=== PATIENT | female | born 1970 | race Caucasian/White ===

== ENCOUNTER 2024-12-22 08:37 | Outpatient (AMB) | payer OTHER, SELFPAY ==
--- NOTE | 2024-12-22 08:41 | A.OFFPC_ITS ---
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: No Is last menstrual period known: No Post menopausal: No Patient : No Allergies No Known Allergies Allergy (Verified 12/22/24 09:10) Medication List - Last Reconciled 12/22/24 by Eli Kaye CNP No Known Home Meds Tobacco use date assessed: 12/22/24 Dental Screening Dental Screen Date: 12/22/24 Did you have a dental visit in the last 12 months?: Yes Did you have a dental problem in the last 6 months where you did not have access to dental care?: No Was dental information given to patient?: Patient has dentist HPI HPI Comments History of Present Illness Details 54-year-old female presents to establish care. Prior PCP? - Dr. Lee, [facility] Last office visit/CPE/labs - 2019 Acute issue(s) - Myopia, hypeopia, astigmatism: wears c ontacts and prescription glasses Past Medical History - Myopia, hypeopia, astigmatism, Herpes simplex 1 Surgical History - Tonsillectomy - Laparoscopy left ovarian cyst Family History - Dad: Tongue cancer - Mom: HTN - MGF: HTN, HLD Social History - Nonsmoker. Does not vape. Does not drmarly nk. Denies recreational drug use - Has been making healthy dietary choice s. Walks routinely. Generally sleep well Health maintenance - Last eye exam was in 04/2024 at [facility]. Record not available. She will sign a release for her PCP to obtain her eye record - Last dental visit was in 11/2024 - Last tetanus vaccine was more than 10 years ago; declined Tdap vaccine today - Has not been vaccinated for the flu ; declines vaccination - She has not been vaccinated for shingl es or pneumonia; declines both vaccines. Encouraged to get vaccinated for both vaccines. She may get the vaccines from the local pharmacy - Last pap smear test was with [facility] in 11/2024 - Last mammogram was at [facility] i n 12/20/2024: Results pending - She has never had a colonoscopy. She w ill consider colonoscopy vs Cologuard and inform his PCP [facility] Surgical History (Updated 12/22/24 @ 08:52 by Radha Reed MA) History of laparoscopy History of tonsillectomy Family History (Updated 12/22/24 @ 09:02 by Radha Reed MA) Mother High blood pressure Maternal Grandfather High blood pressure High cholesterol Father Tongue cancer Social History Housing: House Patient Tobacco Use Status: Never used Tobacco e-Cigarette/Vaping Use: Never Used Second Hand Smoke Exposure: No service: No Current occupational status: unemployed Current occupational exposures/hazards: No Cognitive needs: No Hearing needs: No Vision needs: Yes Questionnaire PHQ-9 Over the last 2 weeks, how often have you been bothered by any of the following problems? 1. Little interest or pleasure in doing things: not at all 2. Feeling down, depressed, or hopeless: not at all 3. Trouble falling or staying asleep, or sleeping too much: not at all 4. Feeling tired or having little energy: several days 5. Poor appetite or overeating: not at all 6. Feeling bad about yourself - or that you are a failure or have let yourself or your family down: not at all 7. Trouble concentrating on things, such as reading the newspaper or watching television: not at all 8. Moving or speaking so slowly that other people could have noticed. Or the opposite - being so fidgety or restless that you have been moving around a lot more than usual: not at all 9. Thoughts that you would be better off or of hurting yourself in some way: not at all Total score: 1 Depression Screening Interpretation: Negative Depression Screening Done: Yes 28199 - PHQ-9 Billing: Yes Source: Developed by Drs. Frank Kaur, Kavita Cavazos, Harpreet Perales and colleagues, with an educational anahi from [employer]. Thrive Questionnaire Date Thrive assessed: 12/22/24 I am a: Patient What is your living situation today?: I have a steady place to live Within the past 12 months, did the food you bought not last and you didn't have the money to get more?: Never true Within the past 12 months, did you worry whether your food would run out before you got money to buy more?: Never true Do you have trouble paying for medicines?: No Do you have trouble getting transportation to medical appointments?: No Do you have trouble paying your heating and electricity bill?: No Do you have trouble taking care of your child, family member or friend?: No Do you have trouble with day-to-day activities such as bathing, preparing meals, shopping, managing finances, etc.?: No Are you currently unemployed and looking for a job?: No Are you interested in more education?: I choose not to answer this question Please select the resources that you would like help with: None Currently or been in a relationship where the following occur: No concerns reported THRIVE Score: 0 AUDIT C Alcohol Use Questionnaire (AUDIT-C) 1. How often do you have a drink containing alcohol?: Never Total Score: 0 CHERRY-7 AMB Questionnaire CHERRY-7 Date CHERRY - 7 assessed: 12/22/24 Feeling nervous, anxious, or on edge: 0 = Not at all Not being able to stop or control worryin = Not at all Worrying too much about different things: 0 = Not at all Trouble relaxin = Not at all Being so restless that it is hard to sit still: 0 = Not at all Becoming easily annoyed or irritable: 0 = Not at all Feeling afraid as if something awful might happen: 0 = Not at all Total CHERRY-7 score (0-4 normal; 5-9 mild; 10-14 moderate; 15-21 severe): 0 Source: Developed by Drs. Frank Kaur, Kavita Cavazos, Harpreet Perales and colleagues, with an educational anahi from [employer]. CHERRY-7 Assessment Billing CHERRY-7 Assessment Tool: CHERRY-7 Assessment 84806 Review of Systems Const Details: Denies chills, Denies fatigue, Denies fever(s), Denies headache(s) and Denies weakness HEENT Denies change in vision, Denies dizziness, Denies headache(s), Denies hearing loss, Denies nasal congestion, Denies sinus pain, Denies sinus pressure and Denies sore throat Card Denies chest pain, Denies lightheadedness, Denies dyspnea and Denies other (palpitations) Resp Denies cough, Denies dyspnea and Denies wheezing GI Denies abdominal pain, Denies melena, Denies hematochezia, Denies change in bowel habits, Denies dyspepsia and Denies nausea Denies hematuria and Denies dysuria Musc Denies abnormal gait, Denies myalgias, Denies arthralgias, Denies numbness and Denies tingling Skin/Breast Denies rash, Denies unusual bruising and Denies wounds Neuro Denies abnormal gait, Denies dizziness, Denies headache(s), Denies memory loss, Denies numbness, Denies Sensory deficit (Neuro), Denies tingling and Denies weakness Psych Denies anxiety, Denies depression and Denies memory loss Endo Denies cold intolerance, Denies fatigue, Denies heat intolerance, Denies polydipsia and Denies polyuria Kevin/Lymph Denies easy bleeding and Denies easy bruising Aller/Immun Denies wheezing Physical exam (Primary Care) Vital Signs: Last Vital Signs Temp 97.6 F 12/22/24 09:02 Pulse 70 12/22/24 09:02 Resp 16 12/22/24 09:02 BP 119/69 12/22/24 09:02 Pulse Ox 100 12/22/24 09:02 Oxygen Delivery Method Room Air 12/22/24 09:02 BMI result Body Mass Index 22.6 Tobacco/Smoking Status: Tobacco use Status Tobacco use date assessed 12/22/24 12/22/24 08:53 Patient Tobacco Use Status Never used Tobacco 12/22/24 08:53 e-Cigarette/Vaping Use Never Used 12/22/24 09:05 PHQ-9: PHQ-9 Score PHQ-9: Total score 1 12/22/24 09:05 Depression Screening Interpretation: Negative Thrive Assessment: Date of Thrive Assessment Date Thrive assessed 12/22/24 12/22/24 08:43 Currently or been in a relationship where the following occur: No concerns reported Const Other: General: no acute distress, well developed, alert and awake Nutritional Appearance: well nourished Orientation/consciousness: patient oriented x3 HENMT Head: Yes normocephalic and Yes atraumatic Ears: hearing grossly normal bilaterally and TM's normal bilaterally General nose exam: Normal external nose present and Normal nares present Mouth: Normal oral and palatal mucosa present and moist mucous membranes Teeth and gingiva: dentition normal Throat: Yes oropharynx normal Eyes Pupils: Equal, round and reactive pupils present and Pupil accommodation reflex normal EOM: EOMs intact bilaterally Neck Neck: Yes normal visual inspection, Yes no lymphadenopathy and Yes trachea midline Thyroid: Thyroid normal Carotids: no bruits Lymphatic: no lymphadenopathy noted Chest Chest palpation & inspection: normal inspection of the chest Resp Effort & Inspection: normal respiratory effort Auscultation: clear to auscultation bilaterally Cardio Rate: regular rate Rhythm: regular rhythm Heart sounds: S1 normal heart sound present, S2 normal heart sound present, no gallops, no murmurs and no rubs Bruits: no abdominal aortic bruits and no carotid bruits GI Palpation (GI): No Abdominal aortic bruit present, Soft to palpation, nontender, No hepatosplenomegaly present and No Rebound tenderness present Auscultation: normal bowel sounds General: Yes no CVA tenderness Back/Spine/Pelvis Back: no CVA tenderness Cervical Spine: cervical ROM normal and No Cervical spine tenderness Thoracic/Lumbar Spine: thoraco-lumbar ROM normal, No pain with thoraco-lumbar ROM, No thoracic spinal tenderness and No lumbar spinal tenderness Skin General: warm and dry. Normal skin color. Normal skin turgor Lesions: no lesions Rashes: no rashes Trauma: no lacerations or abrasions Wounds: no wounds Nails: normal Neuro General: patient oriented x3, gait normal and CN's II-XI intact bilaterally Cranial nerves: Yes Equal, round and reactive pupils present Cognition (Neuro): normal cognition Gait exam (Neuro): Normal gait present Motor exam (neuro): 5/5 motor strength present throughout Sensory Exam: No Sensory deficit (Neuro) Deep tendon reflexes (DTR's): Right patellar reflex intensity grade: 2+ and Left patellar reflex intensity grade: 2+ Extrem General: Yes normal to inspection, No edema and No calf tenderness Psych Appearance: grossly normal Affect: normal affect Attitude: cooperative Thought process: Normal thought process present Coding Level of Care Code New Pt Prev Care 40-64y(01481) Diagnoses Normal physical examination, routine Z00.00 Laboratory tests ordered as part of a complete physical exam (CPE) Z00.00 Additional Codes CHERRY-7 Assessment Billing - CHERRY-7 Assessment Tool: CHERRY-7 Assessment 01955 ([id number]) PHQ-9 - 18620 - PHQ-9 Billing: Yes ([id number]) Assessment & Plan Assessment & Plan (1) Normal physical examination, routine: Code(s): Z00.00 - Encounter for general adult medical examination without abnormal findings Category: Medical Plan: No significant functional limitations noted. Healthy diet and routine exercise encouraged. Advised to perform lab work before next visit. Follow-up for telehealth visit in 2-3 weeks for labs review. Return sooner with symptoms or concerns. Verbalized understanding and agreed with treatment plan. (2) Laboratory tests ordered as part of a complete physical exam (CPE): Code(s): Z00.00 - Encounter for general adult medical examination without abnormal findings Category: Medical Plan: Fasting labs ordered as part of a complete physical exam. Advised to fast for at least 10 hours before getting labs drawn. May drink water Verbalized understanding and agreed with treatment plan. Orders: Orders Lipid Panel Today Z00.00 - Encounter for general adult medical examination without abnormal findings TSH reflex Free T4 Today Z00.00 - Encounter for general adult medical examination without abnormal findings Complete Blood Count Auto Diff Today Z00.00 - Encounter for general adult medical examination without abnormal findings Comprehensive [place]. Panel Fast Today Z00.00 - Encounter for general adult medical examination without abnormal findings Microalbumin, Random (w Creat) Today Z00.00 - Encounter for general adult medical examination without abnormal findings UA CC w/rflx Micro + Cult Today Z00.00 - Encounter for general adult medical examination without abnormal findings Vitamin D 25-OH Total Today Z00.00 - Encounter for general adult medical examination without abnormal findings
[2024-12-22 09:02] VITALS: BP 119/69; PULSE 70; RESP 16; TEMP 36.4; O2SAT 100; BMI 22.6
== END 2024-12-22 09:30 | disposition home or self-care (01) ==
LOC: HO.HMCFM 08:38
PROVIDERS: PCP Nurse Practitioner Family; Visit Provider Nurse Practitioner Family
DX: Z00.00 Encounter for general adult medical examination without abnormal findings (principal)

== ENCOUNTER → 2024-12-22 08:37 | Outpatient (BNVA) | payer OTHER, SELFPAY | PROVIDERS: PCP Nurse Practitioner Family; Visit Provider Nurse Practitioner Family | DX: Z00.00 Encounter for general adult medical examination without abnormal findings (principal) | CPT/HCPCS: 96127 ==

== ENCOUNTER 2024-12-31 09:29 | Outpatient (REF) | payer OTHER, SELFPAY ==
[2024-12-31 11:17] LABS: MANUAL DIFF FLAG NO
[2024-12-31 11:36] LABS: Basophils Percent Auto 0.6 % (0-2); Eosinophils Absolute Auto 0.1 X10*3/uL (0.0-0.4); Eosinophils Percent Auto 1.1 % (0-4); Hematocrit 40.6 % (37.0-47.0); Hemoglobin 13.8 g/dl (12.0-16.0); Imm Gran Abs Auto 0.01 X10*3/uL (0.00-0.03); Imm Gran Pct Auto 0.2 % (0.0-0.4); Lymphocytes Absolute Auto 2.3 X10*3/uL (1.2-4.9); Lymphocytes Percent Auto 49.7 % (20-40); Mean Corpuscular Hemoglobin 29.8 pg (27.0-33.0); Mean Corpuscular Volume 87.7 fL (80.0-98.0); Mean Platelet Volume 9.3 fL (9.4-12.3); Monocytes Absolute Auto 0.3 X10*3/uL (0.1-1.2); Monocytes Percent Auto 7.3 % (2-11); Neutrophils Absolute Auto 1.9 x10*3/uL (2.0-8.3); Neutrophils Percent Auto 41.1 % (45-73); Platelet Count 193 X10*3/uL (160-400); Red Blood Count 4.63 X10*6/uL (4.20-5.50); Red Cell Distribution Width 12.1 % (11.0-16.0); White Blood Count 4.7 X10*3/uL (4.8-10.8)
[2024-12-31 11:55] LABS: Alanine Aminotransferase 27 U/L (0-31); Albumin Level 4.3 g/dL (3.5-5.0); Alkaline Phosphatase 62 U/L (39-117); Anion Gap 11 (12-20); Aspartate Amino Transferase 28 U/L (5-31); Bilirubin Total 0.8 mg/dL (0.0-1.0); Blood Urea Nitrogen 22 mg/dL (9-16); Calcium 9.5 mg/dL (8.4-10.2); Carbon Dioxide 31 mmol/L (22-29); Chloride 104 mmol/L (96-108); Cholesterol 171 mg/dL (<200); Estimated Glomerular Filt Rate > 60; Glucose Fasting 91 mg/dL (60-99); HDL Cholesterol 58 mg/dL (>40); LDL Cholesterol Calculated 98 mg/dL (<100); Potassium 4.3 mmol/L (3.3-5.1); Sodium 142 mmol/L (135-145); Total Protein 7.6 g/dL (6.5-8.0); Triglycerides 78 mg/dL (<150)
[2024-12-31 12:06] LABS: TSH reflex Free T4 0.76 uIU/mL (0.32-4.0); Vitamin D 25-OH Total > 154.2 ng/mL (>30)
[2024-12-31 14:19] LABS: Appearance Urine Clear; Color Urine Yellow; Glucose Urine UA Negative (Negative); Leukocyte Esterase Urine Trace (Negative); Nitrite Urine Negative (Negative); Specific Gravity - Urine 1.025 (1.005-1.025); UMIC TRIGGER UACC YES; Urine Blood Negative (Negative); Urine Ketones Negative (Negative); Urine Protein Negative (Neg-Trace)
[2024-12-31 14:22] LABS: Bacteria Urine None Seen (None Seen); Hyaline Casts Urine 0-2 /LPF (0-2); RBC Urine 0-2 /HPF (0-2); Squamous Epithelial Cell Urine 0-2 /HPF (0-2); WBC Urine 0-5 /HPF (0-5)
[2024-12-31 14:51] LABS: Creatinine Urine 156.44 mg/dL; Microalbum/Creatinine Ratio Ur 4.4 ug/mg cr (<30)
== END 2024-12-31 09:30 | disposition home or self-care (01) ==
LOC: HO.WFDLDS 09:29
PROVIDERS: Visit Provider Nurse Practitioner Family
DX: Z00.00 Encounter for general adult medical examination without abnormal findings (principal); Z13.6 Encounter for screening for cardiovascular disorders
CPT/HCPCS: 36415; 80053; 80061; 81001; 82043; 82306; 82570; 84443; 85025

== ENCOUNTER 2025-01-10 14:20 | Outpatient (AMB) | payer OTHER, SELFPAY ==
--- NOTE | 2025-01-10 14:12 | MHC.PC.OV ---
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 She offers no complaints and denies acute symptoms at this time. [facility] Surgical History (Updated 12/22/24 @ 08:52 by Radha Reed MA) History of laparoscopy History of tonsillectomy Family History (Updated 12/22/24 @ 09:02 by Radha Reed MA) Mother High blood pressure Maternal Grandfather High blood pressure High cholesterol Father Tongue cancer Social History Housing: House Patient Tobacco Use Status: Never used Tobacco e-Cigarette/Vaping Use: Never Used Second Hand Smoke Exposure: No Patient : No service: No Current occupational status: unemployed Current occupational exposures/hazards: No Cognitive needs: No Hearing needs: No Vision needs: Yes Questionnaire Thrive Questionnaire Date Thrive assessed: 12/22/24 CHERRY-7 AMB Questionnaire CHERRY-7 Date CHERRY - 7 assessed: 12/22/24 Source: Developed by Drs. Frank Kaur, Kavita Cavazos, Harpreet Perales and colleagues, with an educational anahi from [employer]. Review of Systems Const Details: Denies chills, Denies fatigue, Denies fever(s), Denies headache(s) and Denies weakness Cardiac Denies chest pain, Denies claudication, Denies leg edema, Denies lightheadedness, Denies palpitations, Denies dyspnea, Denies dyspnea on exertion, Denies orthopnea and Denies other (Loss of consciousness) Resp Denies cough, Denies excessive phlegm production, Denies dyspnea, Denies dyspnea on exertion, Denies snoring and Denies wheezing Physical exam (Primary Care) Tobacco/Smoking Status: Tobacco use Status Tobacco use date assessed 01/10/25 01/10/25 14:14 Patient Tobacco Use Status Never used Tobacco 01/10/25 14:14 e-Cigarette/Vaping Use Never Used 01/10/25 14:14 Thrive Assessment: Date of Thrive Assessment Date Thrive assessed 12/22/24 01/10/25 14:14 Const Other: Patient is alert and oriented x3. Telehealth Telehealth Telehealth Platform: Telephone Location of provider rendering services: practice address Location of patient: address on file Patient Identification confirmed using: Name, : Yes Telehealth method: voice only Patient verbally consented to treatment: Yes Patient verbally consented to billing insurance company: Yes Patient informed of any privacy concerns related to visit: Yes Coding Level of Care Code Tele Est Pt Level 3 (07863) Diagnoses Leukopenia D72.819 Time Spent (min) 10 Assessment & Plan Assessment & Plan (1) Leukopenia: Code(s): D72.819 - Decreased white blood cell count, unspecified Category: Medical Plan: Recent WBC slightly low, 4.7; equivocal Will check vitamin B12 and folate levels and make changes as needed. 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 Return with symptoms or concerns. Verbalized understanding and agreed with the plan. Orders: Orders Vitamin B12 and Folate Today D72.819 - Decreased white blood cell count, unspecified
== END 2025-01-10 15:23 | disposition home or self-care (01) ==
LOC: HO.HMCFM 14:20
PROVIDERS: PCP Nurse Practitioner Family; Visit Provider Nurse Practitioner Family
DX: D72.819 Decreased white blood cell count, unspecified (principal)

== ENCOUNTER → 2025-01-10 14:20 | Outpatient (BNVA) | payer OTHER, SELFPAY | PROVIDERS: PCP Nurse Practitioner Family; Visit Provider Nurse Practitioner Family ==

== ENCOUNTER 2025-02-14 08:51 | Outpatient (AMB) | payer OTHER, SELFPAY ==
--- NOTE | 2025-02-14 09:12 | MHC.OFFWIV ---
Intake Vital Signs 02/14/25 09:17 Height 5 ft 6 in Weight 140 lb 6 oz BMI 22.7 BP 122/70 Blood Pressure Location Lt brachial Position Sitting Respiration 13 Pulse 76 Pulse Source Pulse Oximeter Temp 97.6 F Temp Source Oral Pulse Oximetry (%) 98 Oxygen Delivery Method Room Air Intake Visit Reasons: swelling of nose Intake Note: Patient c/o painful and swelling of nose x 2 days Patient Tobacco Use Status: Never used Tobacco Allergies No Known Allergies Allergy (Verified 02/14/25 09:39) Medication List - Last Reconciled 02/14/25 by JESSICA Taylor No Known Home Meds Do you need a note to return to daycare/school/sports/work: No HPI HPI Comments History of Present Illness Details History - The patient is a 54-year-old female presenting with painful swelling of the nose. - Reports a cold one week prior, with significant nasal sneezing and congestion. - Swelling onset occurred after the subsiding of cold symptoms, prominently on Friday, with soreness following a couple of days later. - Noticeable worsening last night, characterized by throbbing, painful sensation and concerns about an infectious process. - Experience of nasal sores in the past, treated effectively with Valtrex, but not accompanied by swelling. - Ears persistently felt blocked. - Recent travel mentioned, possibly impacting symptom monitoring. - Denies fever, chills, sinus pain, ear pain, sore throat. Physical Exam General: Awake, alert. No apparent distress Eyes: Sclera and conjunctiva clear bilaterally Cerumen bilat EAC removed w/ lavage, TM intact and clear bilat Nose: Under nasal septum is a scabbed lesion, inside both nares there are red blistered areas, some with crusting, turbinates erythematous and edematous, pain w/ tissue manipuation via scope, no drainage Throat: Moist mucosa membrane, pharynx within normal limits Cardiovascular: Regular rate and rhythm Respiratory: Clear to auscultation bilaterally Discussion Notes During this visit, we discussed the patient's probable nasal flare-up due to a Herpes Simplex reactivation, given the prior history of cold sores. I recommended initiating oral Valtrex at a dosage of three times per day for three days to address any viral involvement, even though the presentation did not conclusively appear like a herpes outbreak. In addition, we considered a secondary bacterial component, prompting the prescription of Mupirocin, a topical antibiotic cream to apply intranasally twice daily until lesions resolve. The patient expressed understanding of the potential risks and benefits of the medications, such as gastrointestinal discomfort from Valtrex, which should be alleviated by concurrent food intake. Prospective follow-up possibilities were discussed with particular emphasis on consulting her primary care physician, Dr. Kimberly ANGUIANO, should symptoms persist or worsen. Bilat ear lavage today to address blocked sensations attributed to wax accumulation, anticipating relief once cleared. Assessment and Plan 1. Nasal swelling and pain The nasal discomfort and swelling appear linked to a possible Herpes Simplex reactivation and potential bacterial superinfection. Prescribed Valtrex and Mupirocin aim to address both aspects effectively, with Valtrex focusing on viral containment and Mupirocin targeting any bacterial infections. 2. Wax buildup in ears Anticipate symptomatic improvement through ear irrigation, alleviating the wax-induced blockage and improving auditory comfort. Patient Instructions - Take Valtrex orally three times a day for three days with meals to minimize stomach upset. - Apply Mupirocin cream inside the nostrils twice daily to address the nasal lesions; cease use following resolution. - Undergo ear irrigation to remove excessive ear wax today. - Contact Dr. Kaye or return if symptoms worsen or do not improve as anticipated. Consent Patient was informed and verbally consented to the use of an ambient scribe for clinic note documentation during this visit. Total time spent caring for the patient today was 30 minutes. This includes time spent before the visit reviewing the chart, time spent during the visit, and time spent after the visit on documentation, reviewing laboratory results, diagnostic imaging, medications, performing a medically necessary evaluation, counseling on diagnoses, care coordination, ordering appropriate tests, ordering appropriate medications, review of tests performed by other providers, reporting test results with the patient, communication with other healthcare providers. [facility] Surgical History (Updated 12/22/24 @ 08:52 by Radha Reed MA) History of laparoscopy History of tonsillectomy Family History (Updated 12/22/24 @ 09:02 by Radha Reed MA) Mother High blood pressure Maternal Grandfather High blood pressure High cholesterol Father Tongue cancer Social History Housing: House Patient Tobacco Use Status: Never used Tobacco e-Cigarette/Vaping Use: Never Used Second Hand Smoke Exposure: No service: No Current occupational status: unemployed Current occupational exposures/hazards: No Cognitive needs: No Hearing needs: No Vision needs: Yes Physical Exam Vital Signs: Last Vital Signs Temp 97.6 F 02/14/25 09:17 Pulse 76 02/14/25 09:17 Resp 13 02/14/25 09:17 BP 122/70 02/14/25 09:17 Pulse Ox 98 02/14/25 09:17 Oxygen Delivery Method Simple Mask 02/14/25 09:17 BMI result Body Mass Index 22.7 Office Procedures Cerumen Removal From which ear canal was the cerumen removed: bilateral Removal: irrigation Notes: patient tolerated procedure well, no complications and ear canal clear [id number] Irrigation/Lavage Assessment & Plan Assessment & Plan (1) Herpes: Code(s): B00.9 - Herpesviral infection, unspecified (2) Impacted cerumen of both ears: Code(s): H61.23 - Impacted cerumen, bilateral (3) Nasal lesion: Code(s): J34.89 - Other specified disorders of nose and nasal sinuses Plan . Medications: New valacyclovir (Valtrex) 1,000 mg PO Q8H 9 tabs 0RF mupirocin 2% 1 appl topical BID 15 grams 0RF Patient Instructions: Patient Instructions - Take Valtrex orally three times a day for three days with meals to minimize stomach upset. - Apply Mupirocin cream inside the nostrils twice daily to address the nasal lesions; cease use following resolution. - Undergo ear irrigation to remove excessive ear wax today. - Contact Dr. Kaye or return if symptoms worsen or do not improve as anticipated. Coding Level of Care Code Est Pt Level 4 (20692) Diagnoses Herpes B00.9 Impacted cerumen of both ears H61.23 Nasal lesion J34.89 CPT Codes Office Procedure - CPT: 65386-Xgj Irrigation/Lavage ([id number])
[2025-02-14 09:17] VITALS: BP 122/70; PULSE 76; RESP 13; TEMP 36.4; O2SAT 98; BMI 22.7
== END 2025-02-14 09:55 | disposition home or self-care (01) ==
LOC: HO.HMCFM 08:51
PROVIDERS: PCP Nurse Practitioner Family; Visit Provider Nurse Practitioner Family
DX: B00.9 Herpesviral infection, unspecified (principal); H61.23 Impacted cerumen, bilateral; Z68.22 Body mass index [BMI] 22.0-22.9, adult; J34.89 Other specified disorders of nose and nasal sinuses

== ENCOUNTER → 2025-02-14 08:51 | Outpatient (BNVA) | payer OTHER, SELFPAY | PROVIDERS: PCP Nurse Practitioner Family; Visit Provider Nurse Practitioner Family | DX: J34.89 Other specified disorders of nose and nasal sinuses (principal); H61.23 Impacted cerumen, bilateral; B00.9 Herpesviral infection, unspecified | CPT/HCPCS: 69209 ==